=== PATIENT | male | born 1960 | race Hispanic/Latino ===

== ENCOUNTER 2016-10-13 09:23 | Emergency (ER) | payer MEDICARE, MEDICAID ==
[~2016-10-13] VITALS: Ht 177.8 cm; Wt 90.7 kg
[2016-10-13 09:23] VITALS: BP 152/98
[~2016-10-13 09:23] MED LIST: UNOBMED
[2016-10-13] MEDS ORDERED: IBUPROFEN600 MG ORAL (12:35)
[2016-10-13 12:59] VITALS: BP 152/83
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
== END 2016-10-13 13:09 | disposition home or self-care (01) ==
LOC: EDBD 09:23 → EMR 10:01
DX: S82.491A Other fracture of shaft of right fibula, initial encounter for closed fracture (principal); V43.52XA Car driver injured in collision with other type car in traffic accident, initial encounter; Y92.410 Unspecified street and highway as the place of occurrence of the external cause; I10 Essential (primary) hypertension
CPT/HCPCS: 99283